=== PATIENT | female | born 1980 | race Caucasian/White ===

== ENCOUNTER 2022-09-12 00:05 | Observation (INO) | payer MEDICAID, SELFPAY ==
[2022-09-12] VITALS (8 sets, daily range): BP systolic 94–132; BP diastolic 50–89; PULSE 58–75; RESP 16–18; TEMP 36.3–36.9; O2SAT 95–100; BMI 22.3; BMI 21.2
--- NOTE | 2022-09-12 00:24 | EDS_ITS ---
HPI History of Present Illness Chief Complaint: Substance Abuse Informant: patient Narrative Narrative: Patient requests admission for detox from Xanax and fentanyl. She has been addicted to both of them for the past month, she has had prior addictions to drugs/medications as well. States she used to be prescribed Xanax for anxiety. She tried Cymbalta for anxiety but it did not work after 2 months. This was remote. In the past month, she has been using fentanyl about once a day, snorting it no IV drug use, and she has been taking 3 Xanax pills daily. When she withdrawals from them, she feels shaky/anxious, nausea/vomiting, and sweaty. Last drug use of both was about 3 hours ago she does not have any withdrawal symptoms right now. No recent illness otherwise. [facility] Medical History (Updated 09/12/22 @ 01:[address] Diogo Fernandez MD) Addiction Anxiety delivery delivered Medical History no medical history Home Medications baclofen 10 mg tablet 10 mg PO DAILY 09/12/22 [History Last Taken Unknown] buprenorphine HCl 8 mg sublingual tablet 8 mg sublingual TID 09/12/22 [History Last Taken Unknown] gabapentin 800 mg tablet 800 mg PO .qid 09/12/22 [History Last Taken Unknown] mirtazapine 30 mg tablet (Remeron) 30 mg PO DAILY 09/12/22 [History Last Taken Unknown] promethazine 6.25 mg-codeine 10 mg/5 mL syrup 5 ml PO Q6H PRN cough 09/12/22 [History Last Taken Unknown] quetiapine 300 mg tablet (Seroquel) 300 mg PO QHS 09/12/22 [History Last Taken Unknown] ropinirole 1 mg tablet 1 mg PO QHS 09/12/22 [History Last Taken Unknown] tizanidine 4 mg capsule (Zanaflex) 4 mg PO TID PRN muscle spasticity 09/12/22 [History Last Taken Unknown] Allergy/AdvReac Type Severity Reaction Status Date / Time nalbuphine [From Nubain] Allergy Mild Other Verified 09/12/22 00:11 buprenorphine [From Suboxone] AdvReac Mild Other Verified 09/12/22 00:11 naloxone [From Suboxone] AdvReac Mild Other Verified 09/12/22 00:11 Social History (Updated 09/12/22 @ 00:[address] Diogo Fernandez MD) Smoking Status: Current every day smoker tobacco type: smokeless tobacco details: Denies any alcohol use substance use type: opiates and prescription drug ROS ROS ED Constitutional Constitutional ED: Denies chills or fever(s) Eyes Eyes: Denies change in vision or diplopia ENT ENT ED: Denies rhinorrhea or sore throat Cardiovascular Cardiovascular: Denies chest pain or palpitations Respiratory/Chest Respiratory/Chest: Denies cough or dyspnea Gastrointestinal Gastrointestinal: Denies abdominal pain, diarrhea, nausea or vomiting Genitourinary Genitourinary ED: Denies dysuria or hematuria Musculoskeletal Musculoskeletal: Denies back pain or neck pain Integumentary Denies abscess or rash Neurologic Neurologic: Denies headache(s), paresthesias or weakness Psychiatric Psychiatric: Denies anxiety or suicidal thoughts EXAM Physical Exam Const Vital Signs: 09/12/22 00:07 Temperature 98.2 F Temperature Source Temporal Pulse Rate 75 Respiratory Rate 18 Blood Pressure 132/89 H Blood Pressure Mean 103 Pulse Ox 100 Oxygen Delivery Method Room Air Positive well nourished and well developed General Appearance ED: well developed and NAD HEENT Reports moist mucous membranes normocephalic and atraumatic Eyes PERRL and EOMs intact bilaterally Neck full ROM and supple Resp normal respiratory effort and clear to auscultation bilaterally Cardio regular rate, regular rhythm and no murmurs Rate: Negative for tachycardic GI non-tender and non-distended Auscultation: normoactive bowel sounds Palpation: soft Back/Spine no CVA tenderness General Back: other FROM Extremity normal to inspection General Extremety ED: Negative for edema, pulses abnormal or tenderness General Extremity: Negative for edema or pulses abnormal Neuro oriented x3, CN's II-XII intact bilaterally and no sensory deficits noted Sensorium / Orientation: awake and alert Motor Exam: strength 5/5 throughout Skin no rashes or lesions noted and no wounds MDM MDM MDM Narrative Medical decision making narrative: Labs obtained and are unremarkable, her toxicology does show cocaine in addition to the ones she admitted to. After discussing this with her, she admits she used cocaine 5d ago. Clinically and hemodynamically stable. Lab Data Attestation: I reviewed the patient's lab results. Labs: Laboratory Results - last 24 hr 09/12/22 09/12/22 00:35 00:40 WBC 8.9 RBC 4.58 Hgb 13.0 Hct 40.4 MCV 88.2 MCH 28.4 MCHC 32.2 RDW Std Deviation 47.1 H RDW Coeff of Paulette 14.6 Plt Count 339 MPV 8.8 Immature Gran % (Auto) 0.200 Neut % (Auto) 69.5 Lymph % (Auto) 23.6 Lewis % (Auto) 5.4 Eos % (Auto) 0.9 Baso % (Auto) 0.4 Absolute Neuts (auto) 6.2 Absolute Lymphs (auto) 2.10 Nucleated RBC % 0 Sodium 138 Potassium 3.4 L Chloride 102 Carbon Dioxide 32.0 Anion Gap 4 L BUN 10 Creatinine 0.83 Estim Creat Clear Calc 103.97 Est GFR (MDRD) Af Amer 97 Est GFR (MDRD) Non-Af 80 BUN/Creatinine Ratio 12.0 Glucose 86 Calcium 9.2 Total Bilirubin 0.30 AST 19 ALT 21 Alkaline Phosphatase 87 Total Protein 7.6 Albumin 3.5 Globulin 4.1 Albumin/Globulin Ratio 0.9 Serum , Qual NEGATIVE Urine Opiates Screen NEGATIVE Urine Methadone Screen NEGATIVE Ur Barbiturates Screen NEGATIVE Ur Phencyclidine Scrn NEGATIVE Ur Amphetamines Screen NEGATIVE MDMA (Ecstasy) Screen POSITIVE H U Benzodiazepines Scrn NEGATIVE Urine Cocaine Screen POSITIVE H U Cannabinoids Screen NEGATIVE Ur Drug Screen Comment Management Discussion w/another healthcare provider: Hospitalist Discharge Plan Dx/Rx/DC Orders Clinical Impression: Opiate dependence, Benzodiazepine dependence, Polysubstance abuse Disposition Disposition: Acute Care Hospital [facility]
[2022-09-12 00:50] LABS: Absolute Neutrophil Count 6.2 X10^3/uL (2.0-7.7); Basophil# 0.04 X10^3/uL; Basophil% 0.4 % (0-1); Eosinophil# 0.08 X10^3/uL; Eosinophils% 0.9 % (0-5); Hematocrit 40.4 % (37-47); Lymphocyte % 23.6 % (19-41); Mean Corp Hgb Conc 32.2 g/dL (32-36); Mean Corpuscular Hgb 28.4 pg (27.0-32.0); Mean Corpuscular Volume 88.2 fL (81-99); Mean Platelet Vol. 8.8 fl (6.2-12.0); Monocyte# 0.48 X10^3/uL; Monocyte% 5.4 % (0-10); NRBC Flagged by Analyzer 0 % (0-5); Neutrophil # 6.18 X10^3/uL (2.7-7.7); Neutrophil % 69.5 % (47-70); Platelet Count 339 K/mm3 (150-450); RBC Distribution Width CV 14.6 % (11.6-14.6); RBC Distribution Width SD 47.1 fl (35.1-43.9); Red Blood Count 4.58 M/mm3 (4.2-5.4); White Blood Count 8.9 K/mm3 (4.4-11.0)
[2022-09-12 01:07] LABS: ALB/GLOB Ratio 0.9 RATIO (0.9-2.4); AST(SGOT) 19 U/L (15-37); Alanine Aminotransfer ALT/SGPT 21 U/L (13-56); Albumin, Serum 3.5 g/dL (3.2-5.0); Alkaline Phosphatase 87 U/L (45-117); Anion Gap 4 (5-15); BUN 10 mg/dL (7-18); Calcium,Total 9.2 mg/dL (8.5-10.1); Chloride 102 mmol/L (98-107); Creatinine, Serum 0.83 mg/dL (0.55-1.02); EST Glomerular Filtration Rate 80 mL/min (>60); Est Glom Filt Rate - Afr Amer 97 mL/min (>60); Estimated Creatinine Clearance 103.97 ml/min; Globulin 4.1 g/dL (2.2-4.2); Glucose 86 mg/dL (74-106); Potassium 3.4 mmol/L (3.5-5.1); Protein, Total 7.6 g/dL (6.4-8.2); Sodium Level 138 mmol/L (136-145)
[2022-09-12 01:09] LABS: Amphetamine Urine VISTA NEGATIVE (<1000 ng/mL); Barbiturate Urine VISTA NEGATIVE (< 200 ng/mL); Benzodiazepine Urine VISTA NEGATIVE (< 200 ng/mL); Cocaine Urine VISTA POSITIVE (< 300 ng/mL); Ecstacy Urine VISTA POSITIVE (< 500 ng/mL); Methadone Urine VISTA NEGATIVE (< 300 ng/mL); PCP Urine VISTA NEGATIVE (< 25 ng/mL); THC Urine VISTA NEGATIVE (< 50 ng/mL); Vista UDS pH Range 5
[2022-09-12 01:16] LABS: Internal QC Validated? YES +Cl - CLEAR BKGD; Pregnancy, Serum, hCG Quali. NEGATIVE Negative
--- NOTE | 2022-09-12 01:33 | PCM.HP.STD ---
HPI - General General Date of Service: 09/12/22 Chief Complaint: Desire for detoxification HPI Narrative QUITA FELIZ, is a 41 F with a significant history of polysubstance abuse who comes to the emergency department with help with drugs detoxification. Reportedly patient was sent here because she failed a drug screen at [facility]. She reported that regularly she is on Subutex 8 mg 3 times daily. Aside that she has recently been using fentanyl. She reports snorting 0.5 g of fentanyl daily. Last time she fentanyl was about 4 before presentation. Reportedly previously she was prescribed Xanax for anxiety but because she overdosed her prescriber stopped prescribing Xanax for her. However 1 month ago she began using Xanax. She takes about 3 tablets of 1 mg Xanax per day. Last time she used was about 3 times before her presentation. [facility] Medical History (Updated 09/12/22 @ 02:[address] Luís Devi MD) Addiction Anxiety delivery delivered Tobacco abuse Medical History no medical history Home Medications baclofen 10 mg tablet 10 mg PO DAILY 09/12/22 [History Last Taken Unknown] buprenorphine HCl 8 mg sublingual tablet 8 mg sublingual TID 09/12/22 [History Last Taken Unknown] gabapentin 800 mg tablet 800 mg PO .qid 09/12/22 [History Last Taken Unknown] mirtazapine 30 mg tablet (Remeron) 30 mg PO DAILY 09/12/22 [History Last Taken Unknown] promethazine 6.25 mg-codeine 10 mg/5 mL syrup 5 ml PO Q6H PRN cough 09/12/22 [History Last Taken Unknown] quetiapine 300 mg tablet (Seroquel) 300 mg PO QHS 09/12/22 [History Last Taken Unknown] ropinirole 1 mg tablet 1 mg PO QHS 09/12/22 [History Last Taken Unknown] tizanidine 4 mg capsule (Zanaflex) 4 mg PO TID PRN muscle spasticity 09/12/22 [History Last Taken Unknown] Allergy/AdvReac Type Severity Reaction Status Date / Time nalbuphine [From Nubain] Allergy Mild Other Verified 09/12/22 00:11 buprenorphine [From Suboxone] AdvReac Mild Other Verified 09/12/22 00:11 naloxone [From Suboxone] AdvReac Mild Other Verified 09/12/22 00:11 Family History (Updated 09/12/22 @ 02:[address] Luís Devi MD) Other Anxiety Depression Surgical History H/O arthroscopy Previous section Social History Smoking Status: Current every day smoker tobacco type: smokeless tobacco details: Denies any alcohol use substance use type: opiates and prescription drug ROS ROS Narrative Pertinent positives and pertinent negatives as noted in HPI. All other systems were reviewed and are negative Vital Signs Vital Signs Vital Signs: 09/12/22 00:07 Temperature 98.2 F Temperature Source Temporal Pulse Rate 75 Respiratory Rate 18 Blood Pressure 132/89 H Blood Pressure Mean 103 Pulse Ox 100 Oxygen Delivery Method Room Air Weight Weight: 74.7 kg Body Mass Index (BMI) 22.3 Physical Exam Narrative Physical exam: General: Well-nourished, well-developed. Head: Normocephalic, atraumatic, no tenderness Eyes: Vision is grossly intact. EOMI ENT, no trauma, moist mucous membranes, no rhinorrhea Neck: Nontender, No thyromegaly. CVS: Regular rate and rhythm. S1-S2 present. No murmur, gallop or rub. Respiratory : clear to auscultation bilaterally, chest wall nontender Abdomen: Soft, nontender, nondistended, normal bowel sounds, no masses : Deferred Back: Nontender, no CVA tenderness, no midline spinal tenderness, deformities, step-offs Extremities: Nontender full range of motion, no trauma Skin: Normal color, no trauma, abrasions Neuro: Alert, oriented, cranial nerves II through XII grossly intact. Psychiatry: Normal mood. Normal affect. Not depressed. Not anxious. Results Lab / Micro Data 09/12/22 00:40 09/12/22 00:40 Labs: Laboratory Results - last 24 hr 09/12/22 00:35: Urine Opiates Screen NEGATIVE, Urine Methadone Screen NEGATIVE, Ur Barbiturates Screen NEGATIVE, Ur Phencyclidine Scrn NEGATIVE, Ur Amphetamines Screen NEGATIVE, MDMA (Ecstasy) Screen POSITIVE H, U Benzodiazepines Scrn NEGATIVE, Urine Cocaine Screen POSITIVE H, U Cannabinoids Screen NEGATIVE, Ur Drug Screen Comment 09/12/22 00:40: WBC 8.9, RBC 4.58, Hgb 13.0, Hct 40.4, MCV 88.2, MCH 28.4, MCHC 32.2, RDW Std Deviation 47.1 H, RDW Coeff of Paulette 14.6, Plt Count 339, MPV 8.8, Immature Gran % (Auto) 0.200, Neut % (Auto) 69.5, Lymph % (Auto) 23.6, Weld % (Auto) 5.4, Eos % (Auto) 0.9, Baso % (Auto) 0.4, Absolute Neuts (auto) 6.2, Absolute Lymphs (auto) 2.10, Nucleated RBC % 0, Sodium 138, Potassium 3.4 L, Chloride 102, Carbon Dioxide 32.0, Anion Gap 4 L, BUN 10, Creatinine 0.83, Estim Creat Clear Calc 103.97, Est GFR (MDRD) Af Amer 97, Est GFR (MDRD) Non-Af 80, BUN/Creatinine Ratio 12.0, Glucose 86, Calcium 9.2, Total Bilirubin 0.30, AST 19, ALT 21, Alkaline Phosphatase 87, Total Protein 7.6, Albumin 3.5, Globulin 4.1, Albumin/Globulin Ratio 0.9, Serum , Qual NEGATIVE Assessment & Plan Assessment/Plan (1) Polysubstance abuse: (2) Benzodiazepine dependence: (3) Tobacco abuse: PLAN: Plan Opioid dependence and withdrawal Patient will be started on Subutex and other adjunctive medications: dicyclomine as needed; Vistaril as needed; methocarbamol as needed; clonidine as needed; Imodium as needed; trazodone as needed and Zofran as needed. Monitor COWS and CINA score Benzo dependence and desire for detoxification Patient be started on a decreased dose of Xanax that she takes and other adjunctive medications: dicyclomine as needed; Vistaril as needed; Imodium as needed; trazodone as needed; Zofran as needed; scheduled thiamine; and schedule folic acid. Monitor CIWA score Tobacco abuse Counseled Nicotine patch prescribed. DVT prophylaxis Low risk Encourage to ambulate. Time spent in the patient's overall evaluation,decision-making process, review of diagnostic data, adjustment of management, discussion with other providers, nursing nursing and ancillary staff involved in patient's care documentation, 44 minutes. Charges/Coding Visit Charges Inpatient E&M: 86022 Init Hosp L2
[2022-09-12 02:08] LABS: Alcohol, Blood (Medical)-Serum < 3.0 mg/dL
[2022-09-12] MEDS: MELATONIN 3 MG TABLET PO (04:10)
[2022-09-12] MEDS: QUEtiapine 100 MG Tablet 300 MG PO ×2 (04:10→22:16)
[2022-09-12] MEDS: ALPRAZolam 0.5 MG Tablet PO ×3 (06:42→22:16)
[2022-09-12] MEDS: Thiamine Hydrochloride 100 MG Tablet PO (08:22)
[2022-09-12] MEDS: Folic Acid 1 MG Tablet PO (08:22)
[2022-09-12] MEDS: hydrOXYzine PAM 25 MG Capsule 50 MG PO ×2 (08:31→22:19)
[2022-09-12] MEDS: Mirtazapine 30 MG Tablet PO (10:46)
[2022-09-12] MEDS: Baclofen 10 MG Tablet PO (10:46)
[2022-09-12] MEDS: Gabapentin 800 MG Tablet PO ×4 (10:48→22:16)
--- NOTE | 2022-09-12 11:23 | PCM.HOSP.N ---
Hospitalist Note Patient resting comfortably in bed, will continue detox protocol
--- NOTE | 2022-09-12 11:42 | ADDICTION ---
This insurance underwriter sales met with PT to conduct ASAM, MSE, AUDIT assessments and to plan for d/c. PT A+Ox4 and participated actively. All assessments completed and placed in PT's chart. PT plans to f/u with [facility] for follow-up treatment services. PT did not indicate a need for transportation post d/c from [facility].
[2022-09-12] MEDS: MELATONIN 10 MG TABLET PO (22:16)
[2022-09-12] MEDS: Pramipexole Di-HCl 0.5 MG Tablet PO (22:16)
[2022-09-12] MEDS: Dicyclomine 10 MG Capsule 20 MG PO (22:19)
[2022-09-12] MEDS: tiZANidine HCl 2 MG Tablet 4 MG PO (22:19)
[2022-09-13] VITALS (7 sets, daily range): BP systolic 101–124; BP diastolic 61–76; PULSE 55–78; RESP 16–18; TEMP 36.6–37.2; O2SAT 94–100
[2022-09-13] MEDS: ALPRAZolam 0.5 MG Tablet PO (05:14)
[2022-09-13] MEDS: cloNIDine HCl 0.1 MG Tablet PO (05:15)
[2022-09-13] MEDS: Thiamine Hydrochloride 100 MG Tablet PO (08:11)
[2022-09-13] MEDS: Folic Acid 1 MG Tablet PO (08:11)
[2022-09-13] MEDS: Mirtazapine 30 MG Tablet PO (08:11)
[2022-09-13] MEDS: chlordiazePOXIDE 25 MG Capsule PO ×2 (08:16→17:47)
[2022-09-13] MEDS: Gabapentin 800 MG Tablet PO ×4 (08:16→21:13)
--- NOTE | 2022-09-13 11:14 | PCM.PN.HOSP ---
Reason for Visit Reason for Visit: Diagnoses Sedative, hypnotic or anxiolytic dependence, uncomplicated (09/12/22) Other psychoactive substance abuse, uncomplicated (09/12/22) Tobacco use (09/12/22) Subjective Subjective Pt tired, no acute complaints Objective Data Objective Data Vital Signs: Vital Signs Temp Pulse Resp BP Pulse Ox O2 Del Method 98.1 F 66 18 106/63 96 Room Air 09/13/22 08:31 09/13/22 08:31 09/13/22 08:31 09/13/22 08:31 09/13/22 08:31 09/13/22 08:31 Oxygen Delivery Method Room Air Weight: 70.8 kg Body Mass Index (BMI) 21.2 Lab / Micro Data 09/12/22 00:40 09/12/22 00:40 Physical Exam Narrative General: Alert, oriented, no apparent distress HEENT: Atraumatic, normocephalic Eyes: extraocular movements grossly intact Neck: Supple Respiratory: normal respiratory effort Cardiovascular: no edema appreciated GI: nondistended Extremities: Moving all extremities Neuro: No overt focal neurological deficits Psych: Cooperative Assessment & Plan Assessment/Plan (1) Polysubstance abuse: (2) Benzodiazepine dependence: (3) Opiate dependence: (4) Tobacco abuse: PLAN: Plan #Acute opiate withdrawal - Subutex taper initiated - As needed Tylenol, ibuprofen, bowel regimen, gabapentin, Bentyl, Vistaril, methocarbamol, clonidine - As needed trazodone nightly - As needed antiemetics -Once patient begins to clinically improve will discuss further discharge planning #Benzodiazepine use disorder use disorder - We will begin CIWA every 4 for 24 hours, then every 6 for 24 hours, then every 12 until discharge -Will begin librium taper -Takes scheduled gabapentin at home -Will start Bentyl and hydroxyzine as needed as well as loperamide as needed -Begin thiamine and folic acid supplementation -Zofran as needed for nausea -Case management consult to assist with discharge planning -EtOH and drug screen obtained #Insomnia -continue home Seroquel, Remeron, melatonin #Tobacco use -Advise cessation #DVT ppx: Low risk, ambulatory Aliyah Camilo MD Time spent in the patient's overall evaluation,decision-making process, review of diagnostic data, adjustment of management, discussion with other providers, nursing nursing and ancillary staff involved in patient's care documentation, 36 Minutes Charges/Coding Visit Charges Inpatient E&M: 89363 Subs Hosp L2
[2022-09-13] MEDS: hydrOXYzine PAM 25 MG Capsule PO ×3 (11:53→23:07)
[2022-09-13] MEDS: tiZANidine HCl 2 MG Tablet 4 MG PO ×2 (11:54→19:59)
[2022-09-13] MEDS: Dicyclomine 10 MG Capsule 20 MG PO ×2 (11:54→17:47)
[2022-09-13] MEDS: Ondansetron 8 MG Tablet PO (17:50)
[2022-09-13] MEDS: cloNIDine HCl 0.1 MG Tablet 0.05 MG PO (19:59)
[2022-09-13] MEDS: Buprenorphine HCl 2 MG TAB.SUBL SL (20:27)
[2022-09-13] MEDS: QUEtiapine 100 MG Tablet 300 MG PO (21:12)
[2022-09-13] MEDS: MELATONIN 10 MG TABLET PO (21:12)
[2022-09-13] MEDS: Pramipexole Di-HCl 0.5 MG Tablet PO (21:13)
[2022-09-14] MEDS: Dicyclomine 10 MG Capsule 20 MG PO ×4 (01:09→22:49)
[2022-09-14] MEDS: chlordiazePOXIDE 25 MG Capsule PO ×3 (01:09→20:53)
[2022-09-14] MEDS: Acetaminophen 325 MG Tablet 650 MG PO ×2 (02:32→22:49)
[2022-09-14 02:34] VITALS: BP 118/80; PULSE 68; RESP 18; TEMP 36.3; O2SAT 96
[2022-09-14] MEDS: Buprenorphine HCl 2 MG TAB.SUBL SL ×3 (03:48→20:49)
[2022-09-14] MEDS: tiZANidine HCl 2 MG Tablet 4 MG PO ×2 (03:48→15:33)
[2022-09-14 08:15] VITALS: O2SAT 97
[2022-09-14] MEDS: Folic Acid 1 MG Tablet PO (09:16)
[2022-09-14] MEDS: Thiamine Hydrochloride 100 MG Tablet PO (09:17)
[2022-09-14] MEDS: Gabapentin 800 MG Tablet PO ×4 (09:18→20:48)
[2022-09-14] MEDS: hydrOXYzine PAM 25 MG Capsule PO ×3 (09:19→20:49)
[2022-09-14] MEDS: Mirtazapine 30 MG Tablet PO (09:20)
[2022-09-14] MEDS: Ondansetron 8 MG Tablet PO ×2 (09:38→17:33)
[2022-09-14 09:44] VITALS: BP 131/86; PULSE 74; RESP 18; TEMP 36.8; O2SAT 97
--- NOTE | 2022-09-14 12:01 | PCM.PN.HOSP ---
Reason for Visit Reason for Visit: Diagnoses Opioid dependence, uncomplicated (09/12/22) Sedative, hypnotic or anxiolytic dependence, uncomplicated (09/12/22) Other psychoactive substance abuse, uncomplicated (09/12/22) Tobacco use (09/12/22) Subjective Subjective Feeling somewhat nauseous today, was started on the Subutex taper yesterday evening Objective Data Objective Data Vital Signs: Vital Signs Temp Pulse Resp BP Pulse Ox O2 Del Method 98.2 F 74 18 131/86 H 97 Room Air 09/14/22 09:44 09/14/22 09:44 09/14/22 09:44 09/14/22 09:44 09/14/22 09:44 09/14/22 09:44 Oxygen Delivery Method Room Air Weight: 70.8 kg Body Mass Index (BMI) 21.2 Lab / Micro Data 09/12/22 00:40 09/12/22 00:40 Physical Exam Narrative General: Alert, oriented HEENT: Atraumatic, normocephalic Eyes: extraocular movements grossly intact Neck: Supple Respiratory: normal respiratory effort Cardiovascular: no edema appreciated GI: nondistended Extremities: Moving all extremities Neuro: No overt focal neurological deficits Psych: Cooperative Assessment & Plan Assessment/Plan (1) Polysubstance abuse: (2) Benzodiazepine dependence: (3) Opiate dependence: (4) Tobacco abuse: PLAN: Plan #Acute opiate withdrawal - Subutex taper initiated - As needed Tylenol, ibuprofen, bowel regimen, gabapentin, Bentyl, Vistaril, methocarbamol, clonidine - As needed trazodone nightly - As needed antiemetics -Once patient begins to clinically improve will discuss further discharge planning -09/14: Subutex taper started, continue supportive care #Benzodiazepine use disorder - We will begin CIWA every 4 for 24 hours, then every 6 for 24 hours, then every 12 until discharge -Will begin librium taper -Takes scheduled gabapentin at home -Will start Bentyl and hydroxyzine as needed as well as loperamide as needed -Begin thiamine and folic acid supplementation -Zofran as needed for nausea -Case management consult to assist with discharge planning -EtOH and drug screen obtained -09/14: Tolerating Librium taper, continue current care #Insomnia -continue home Seroquel, Remeron, melatonin #Tobacco use -Advise cessation #DVT ppx: Low risk, ambulatory Aliyah Camilo MD Time spent in the patient's overall evaluation,decision-making process, review of diagnostic data, adjustment of management, discussion with other providers, nursing nursing and ancillary staff involved in patient's care documentation, 25 Minutes Charges/Coding Visit Charges Inpatient E&M: 62627 Subs Hosp L1
[2022-09-14 15:36] VITALS: BP 129/82; PULSE 79; RESP 16; TEMP 36.9; O2SAT 95
[2022-09-14] MEDS: cloNIDine HCl 0.1 MG Tablet 0.05 MG PO (15:49)
[2022-09-14 20:29] VITALS: BP 106/55; PULSE 64; RESP 18; TEMP 36.6; O2SAT 99
[2022-09-14] MEDS: Pramipexole Di-HCl 0.5 MG Tablet PO (20:48)
[2022-09-14] MEDS: MELATONIN 10 MG TABLET PO (20:49)
[2022-09-14] MEDS: QUEtiapine 100 MG Tablet 300 MG PO (20:49)
[2022-09-15 03:36] VITALS: BP 110/72; PULSE 73; RESP 18; TEMP 36.6; O2SAT 97
[2022-09-15] MEDS: tiZANidine HCl 2 MG Tablet 4 MG PO ×2 (03:51→11:49)
[2022-09-15] MEDS: Ondansetron 8 MG Tablet PO (03:51)
[2022-09-15] MEDS: hydrOXYzine PAM 25 MG Capsule PO ×3 (03:51→15:11)
[2022-09-15] MEDS: cloNIDine HCl 0.1 MG Tablet 0.05 MG PO ×2 (03:51→11:49)
[2022-09-15] MEDS: Buprenorphine HCl 2 MG TAB.SUBL SL ×3 (03:51→21:11)
[2022-09-15] MEDS: Dicyclomine 10 MG Capsule 20 MG PO ×3 (05:10→17:49)
[2022-09-15] MEDS: Acetaminophen 325 MG Tablet 650 MG PO ×2 (05:11→15:12)
[2022-09-15 08:44] VITALS: O2SAT 95
[2022-09-15] MEDS: Gabapentin 800 MG Tablet PO ×4 (10:19→21:26)
[2022-09-15] MEDS: Thiamine Hydrochloride 100 MG Tablet PO (10:21)
[2022-09-15] MEDS: Folic Acid 1 MG Tablet PO (10:21)
[2022-09-15 10:23] VITALS: BP 109/68; PULSE 62; RESP 16; TEMP 36.8; O2SAT 98
[2022-09-15] MEDS: Ondansetron 8 MG Tablet 4 MG PO (10:28)
--- NOTE | 2022-09-15 10:33 | PN.HOSP_ITS ---
Reason for Visit Reason for Visit: Diagnoses Opioid dependence, uncomplicated (09/12/22) Sedative, hypnotic or anxiolytic dependence, uncomplicated (09/12/22) Other psychoactive substance abuse, uncomplicated (09/12/22) Tobacco use (09/12/22) Subjective Subjective Reports feeling achy and that her stomach hurts Objective Data Objective Data Vital Signs: Vital Signs Temp Pulse Resp BP Pulse Ox O2 Del Method 98.2 F 62 16 109/68 98 Room Air 09/15/22 10:23 09/15/22 10:23 09/15/22 10:23 09/15/22 10:23 09/15/22 10:23 09/15/22 10:23 Oxygen Delivery Method Room Air Weight: 70.8 kg Body Mass Index (BMI) 21.2 Intake & Output: Intake and Output for Last 24 Hours 09/13/22 09/14/22 09/15/22 23:59 23:59 23:59 Intake Total 1000 / 1000 Balance 1000 / 1000 Lab / Micro Data 09/12/22 00:40 09/12/22 00:40 Physical Exam Narrative General: Alert, oriented HEENT: Atraumatic, normocephalic Eyes: extraocular movements grossly intact Neck: Supple Respiratory: normal respiratory effort Cardiovascular: no edema appreciated GI: nondistended Extremities: Moving all extremities Neuro: No overt focal neurological deficits Psych: Cooperative Assessment & Plan Assessment/Plan (1) Polysubstance abuse: (2) Benzodiazepine dependence: (3) Opiate dependence: (4) Tobacco abuse: PLAN: Plan #Acute opiate withdrawal - Subutex taper initiated - As needed Tylenol, ibuprofen, bowel regimen, gabapentin, Bentyl, Vistaril, methocarbamol, clonidine - As needed trazodone nightly - As needed antiemetics -Once patient begins to clinically improve will discuss further discharge plann ing -09/14: Subutex taper started, continue supportive care -09/15: Still feeling achy, will continue current Subutex taper #Benzodiazepine use disorder - We will begin CIWA every 4 for 24 hours, then every 6 for 24 hours, then every 12 until discharge -Will begin librium taper -Takes scheduled gabapentin at home -Will start Bentyl and hydroxyzine as needed as well as loperamide as needed -Begin thiamine and folic acid supplementation -Zofran as needed for nausea -Case management consult to assist with discharge planning -EtOH and drug screen obtained -09/14: Tolerating Librium taper, continue current care -09/15: Librium taper completed #Insomnia -continue home Seroquel, Remeron, melatonin #Tobacco use -Advise cessation #DVT ppx: Low risk, ambulatory Aliyah Camilo MD Time spent in the patient's overall evaluation,decision-making process, review of diagnostic data, adjustment of management, discussion with other providers, nursing nursing and ancillary staff involved in patient's care documentation, 25 Minutes Charges/Coding Visit Charges Inpatient E&M: 06922 Subs Hosp L1
[2022-09-15 15:20] VITALS: BP 109/74; PULSE 59; RESP 16; TEMP 36.7; O2SAT 96
[2022-09-15 20:53] VITALS: BP 111/69; PULSE 68; RESP 18; TEMP 36.9; O2SAT 98
[2022-09-15] MEDS: Mirtazapine 30 MG Tablet PO (21:26)
[2022-09-15] MEDS: QUEtiapine 100 MG Tablet 300 MG PO (21:26)
[2022-09-15] MEDS: Pramipexole Di-HCl 0.5 MG Tablet PO (21:26)
[2022-09-15] MEDS: MELATONIN 10 MG TABLET PO (21:26)
[2022-09-16 03:37] VITALS: BP 113/68; PULSE 61; RESP 16; TEMP 36.7; O2SAT 99
[2022-09-16] MEDS: Ondansetron 8 MG Tablet PO ×2 (03:56→11:10)
[2022-09-16] MEDS: hydrOXYzine PAM 25 MG Capsule PO ×2 (03:56→09:10)
[2022-09-16] MEDS: Dicyclomine 10 MG Capsule 20 MG PO ×2 (03:56→11:11)
[2022-09-16] MEDS: Buprenorphine HCl 2 MG TAB.SUBL SL (08:59)
[2022-09-16] MEDS: Thiamine Hydrochloride 100 MG Tablet PO (08:59)
[2022-09-16] MEDS: Gabapentin 800 MG Tablet PO (08:59)
[2022-09-16] MEDS: Folic Acid 1 MG Tablet PO (09:00)
[2022-09-16] MEDS: cloNIDine HCl 0.1 MG Tablet 0.05 MG PO (09:10)
[2022-09-16] MEDS: tiZANidine HCl 2 MG Tablet 4 MG PO (09:18)
[2022-09-16 10:27] VITALS: O2SAT 99
--- NOTE | 2022-09-16 11:12 | ADDICTION ---
This ad writer met with client for follow-up. [facility] to complete d/c plans. Client denies questions/concerns regarding d/c plan, recovery, or treatment.
--- NOTE | 2022-09-16 11:26 | DS.PCM_ITS ---
Providers Date of Admission: 09/12/22 Date of Discharge: 09/16/22 Primary Care Physician: No Primary Care Phys Reason For Visit: DESIRE FOR DETOXIFICATION Diagnosis Discharge Diagnosis (1) Polysubstance abuse: Status: Acute Code(s): F19.10 - Other psychoactive substance abuse, uncomplicated (2) Benzodiazepine dependence: Status: Acute Code(s): F13.20 - Sedative, hypnotic or anxiolytic dependence, uncomplicated (3) Opiate dependence: Status: Acute Code(s): F11.20 - Opioid dependence, uncomplicated (4) Tobacco abuse: Status: Acute Code(s): Z72.0 - Tobacco use Plan #Acute opiate withdrawal #Benzodiazepine use disorder #Insomnia #Tobacco use Medications at Discharge Home Medications baclofen 10 mg tablet 10 mg PO DAILY muscxle relax 09/12/22 buprenorphine HCl 8 mg sublingual tablet 8 mg sublingual TID detox 09/12/22 gabapentin 800 mg tablet 800 mg PO .qid pain 09/12/22 melatonin 10 mg capsule 10 mg PO QHS sleep 09/12/22 mirtazapine 30 mg tablet (Remeron) 30 mg PO DAILY sleep 09/12/22 quetiapine 300 mg tablet (Seroquel) 300 mg PO QHS sleep 09/12/22 ropinirole 1 mg tablet 1 mg PO QHS sleep 09/12/22 tizanidine 4 mg capsule (Zanaflex) 4 mg PO TID PRN muscle spasticity 09/12/22 Hospital Course Summary of Care Provided Minutes Spent on Discharge: 20 Hospital Course: Patient was admitted 09/12/2022 requesting detox from opioids. Patient was admitted and detox protocol ordered. Patient also had endorsed being on Xanax 3 times a day but has been getting this off the streets, also had abbreviated detox with Librium for this. They completed their detox and were discharged in stable condition. On the day of discharge no new medical complaints voiced. Physical Exam Narrative General: Alert, oriented HEENT: Atraumatic, normocephalic Eyes: extraocular movements grossly intact Neck: Supple Respiratory: normal respiratory effort Cardiovascular: no edema appreciated GI: nondistended Extremities: Moving all extremities Neuro: No overt focal neurological deficits Psych: Cooperative Weight / BMI Weight Weight: 70.8 kg Body Mass Index (BMI) 21.2 ABG / Lab / Microbiology Data 09/12/22 00:40 09/12/22 00:40 D/C Instructions Discharge Diet: No restrictions Meaningful Use Info Meaningful Use Diagnoses (Choose all that apply): None applicable Discharge Plan Admission Admit Date/Time: 09/12/22 01:36 Primary Reason for Your Visit: Detox Attending Provider: Aliyah Camilo Primary Care Provider: Care Physician,No Primary Consulting Providers: Luís Devi Instructions Patient Instructions: Addiction Work, Addiction: Getting Help, Addiction: Your Treatment Options, Addiction Recovery Counseling Additional Instructions / Restrictions: -Please call your primary care provider's office upon discharge to schedule a hospital follow up within 1 week. -If you do not have a primary care physician of list of local primary care physicians can be provided for you upon discharge. Please ask for this list prior to discharge -For any concerning signs or symptoms please call 911 or proceed to the nearest emergency department Discharge Orders/Prescriptions Prescriptions: Continued gabapentin 800 mg tablet 800 mg PO .qid tizanidine [Zanaflex] 4 mg capsule 4 mg PO TID PRN (Reason: muscle spasticity) quetiapine [Seroquel] 300 mg tablet 300 mg PO QHS ropinirole 1 mg tablet 1 mg PO QHS mirtazapine [Remeron] 30 mg tablet 30 mg PO DAILY baclofen 10 mg tablet 10 mg PO DAILY melatonin 10 mg capsule 10 mg PO QHS Held buprenorphine HCl 8 mg tablet, sublingual 8 mg sublingual TID Hold Instructions: Resume on 09/27/22. Hold until discussed with your prescribing physician as you completed to detox of buprenorphine Discontinued promethazine-codeine 6.25-10 mg/5 mL syrup 5 ml PO Q6H PRN (Reason: cough) Hold Instructions: MD Ordered Referrals / Follow Up: Care Physician,No Primary [Primary Care Provider] - Within 1 Week ( -If you do not have a primary care physician of list of local primary care physicians can be provided for you upon discharge. Please ask for this list prior to discharge) [facility] Doctor,Out of [Non-Staff] - Disposition Disposition (needs filled in before D/C Order can be placed): Home, Self Care Charges/Coding Visit Charges Inpatient E&M: 68309 Disch Hosp
[2022-09-16 13:43] VITALS: BP 122/65; PULSE 88; RESP 16; TEMP 36.6; O2SAT 97
== END 2022-09-16 14:00 | disposition home or self-care (01) ==
LOC: ED 00:52 → MS3 07:00
PROVIDERS: Admitting Provider Hospitalist; Emergency Provider Emergency Medicine; Referring Provider Hospitalist; Visit Provider Internal Medicine
DX: F11.23 Opioid dependence with withdrawal (principal); F13.20 Sedative, hypnotic or anxiolytic dependence, uncomplicated; F41.9 Anxiety disorder, unspecified; Z79.899 Other long term (current) drug therapy; F17.220 Nicotine dependence, chewing tobacco, uncomplicated
CPT/HCPCS: 36415; 80053; 80307; 82077; 84703; 85025; 99283; H0012